=== PATIENT | male | born 1985 | race Caucasian/White ===

== ENCOUNTER 2016-09-15 22:12 | Emergency (ER) | payer OTHER ==
[~2016-09-15] VITALS: Ht 208.3 cm; Wt 136.1 kg
--- NOTE | 2016-09-15 22:37 | ED DYSPNEA/ASTHMA COMPLAINT ---
History of Present Illness General Chief Complaint: Dyspnea (COPD, CHF, Other) Stated Complaint: ASTHMA ATTACK Source: patient, family, old records Exam Limitations: clinical condition Vital Signs & Intake/Output Vital Signs & Intake/Output Vital Signs Date Time Temp Pulse Resp B/P Pulse O2 O2 Flow FiO2 Ox Delivery Rate 09/16 0022 98.7 93 20 134/74 92 Room Air 09/15 2219 98.4 116 24 165/90 89 Room Air ED Intake and Output 09/16 0000 09/15 1200 Intake Total Output Total Balance Patient 300 lb Weight Allergies Coded Allergies: Penicillins (Mild, UNKNOWN WAS TOLD HE HAD A KID 09/15/16) amoxicillin (Mild, UNKNOWN WAS TOLD HE HAD A KID 09/15/16) Reconcile Medications Albuterol Sulfate (Proair Hfa) 90 MCG HFA.AER.AD 2-4 INH INH Q6P PRN ASTHMA Ipratropium/Albuterol Sulfate (Combivent Respimat Inhal [place]) 20 MCG-100 MCG/ ACTUATION MIST.INHAL 2 INH INH Q6P PRN ASTHMA Prednisone (Deltasone) 20 MG TABLET 3 TAB PO DAILY ASTHMA Triage Note: RECEIVED 31 YO MALE WITH HX OF ASTHMA, C/O SUDDEN ONSET WHEEZING AND SOB, STARTED ABOUT ONE HOUR AGO IN SHOWER. Triage Nurses Notes Reviewed? yes Onset: Abrupt Duration: minute(s):, continues in ED, getting worse Severity: severe Activities at Onset: none Prior Episodes/Possible Cause: occasional episodes HPI: Patient presents for evaluation of severe shortness of breath that began abruptly while taking a shower prior to arrival. Patient began coughing severely. Since then he has had a constant shortness of breath gets worse with coughing and with exertion. Unfortunately they were unable to find his metered- dose inhaler at home so he has taken no medications to this point. He does Have a history of asthma. Past History Travel History Traveled to [place] past 21 day No Medical History Any Pertinent Medical History? see below for history Neurological: NONE EENT: NONE Cardiovascular: NONE Respiratory: asthma Gastrointestinal: NONE Hepatic: NONE Renal: NONE Musculoskeletal: NONE Psychiatric: NONE Endocrine: NONE Blood Disorders: NONE Cancer(s): NONE Surgical History Surgical History: non-contributory Psychosocial History What is your primary language Montenegrin Tobacco Use: Never used Family History Hx Contributory? No Review of Systems Review of Systems Constitutional: Reports: no symptoms. EENTM: Reports: no symptoms. Respiratory: Reports: see HPI. Cardiovascular: Reports: no symptoms. GI: Reports: no symptoms. Genitourinary: Reports: no symptoms. Musculoskeletal: Reports: no symptoms. Skin: Reports: no symptoms. Neurological/Psychological: Reports: no symptoms. Hematologic/Endocrine: Reports: no symptoms. Immunologic/Allergic: Reports: no symptoms. All Other Systems: Reviewed and Negative Physical Exam Physical Exam Respiratory: see below Comments: Gen.: Well-nourished, well-developed, severe respiratory distress. Head: Normocephalic, atraumatic. Eyes: Normal inspection bilaterally Ears: Normal inspection bilaterally Nose: Normal inspection Throat/mouth : Moist mucosa Neck: Supple, full range of motion, no goiter Heart: Regular rate and rhythm, no murmurs rubs or gallops Lungs: Diminished breath sounds bilaterally with no wheezes rales or rhonchi, pronounced bronchospastic cough with deep inspiration Chest: Nontender Back: Normal range of motion Abdomen: Soft, nontender, nondistended, normal bowel sounds Extremities: Normal range of motion grossly, equal radial pulses, no cyanosis clubbing or edema Neurologic: Cranial nerves grossly intact, speech is clear Skin: warm and dry Psychiatric: Slightly anxious but otherwise cooperative, no apparent delusions or hallucinations Core Measures ACS in differential dx? No Severe Sepsis Present: No Septic Shock Present: No Progress Differential Diagnosis: asthma, AMI, bronchitis, CHF, COPD, pulmonary embolism, pneumonia, pneumothorax, unstable angina Plan of Care: Orders Procedure Date/time Status TROPONIN LEVEL 09/15 2236 Complete D-DIMER 09/15 2236 Complete CBC WITHOUT DIFFERENTIAL 09/15 2236 Complete BASIC METABOLIC PANEL 09/15 2236 Complete Laboratory Tests 09/15/16 2314: Anion Gap 11, Estimated GFR > 60, BUN/Creatinine Ratio 13.1, Glucose 117 H, Calcium 9.7, Troponin I < 0.01, D-Dimer < 200, CBC w Diff NO MAN DIFF REQ, RBC 5.02, MCV 92.1, MCH 31.3 H, RDW 13.5, MPV 7.8, Gran % 65.3, Lymphocytes % 24.0, Monocytes % 8.0, Eosinophils % 2.5, Basophils % 0.2, Absolute Granulocytes 5.6, Absolute Lymphocytes 2.1, Absolute Monocytes 0.7 H, Absolute Eosinophils 0.2, Absolute Basophils 0, PUBS MCHC 33.9 Initial ED EKG: none Comments: 09/15/2016 10:37:25 PM medications ordered and I have discussed the possibility of a continuous nebulizer treatment with the respiratory therapist. 09/15/2016 11:18:02 PM Endy feels much better and looks really improved clinically. Auscultation of the lungs reveals improved although still diminished air entry, but the patient does not have the pronounced bronchospastic cough that he did with initial evaluation. Patient is also chest pain free at this moment. I have ordered an albuterol treatment. 09/16/2016 12:54:16 AM Endy is feeling much better and appears quite comfortable. In fact he is nodding off to sleep. I feel he is now stable for discharge to home. Departure Departure Disposition: HOME OR SELF CARE Condition: Stable Clinical Impression Primary Impression: Asthma exacerbation Additional Instructions: Rest, no exertion. Combivent inhaler 4 times daily for your asthma. Use albuterol in between if necessary. Prednisone as prescribed. Follow-up with your primary care physician on Sunday. Return if any concerns or sudden worsening. Thank you for choosing the [facility] for your care. It was a pleasure to serve you today. Sarabjit Graham M.D. [facility] Departure Forms: Customer Survey General Discharge Information Prescriptions: Current Visit Scripts Ipratropium/Albuterol Sulfate (Combivent Respimat Inhal [place]) 2 INH INH Q6P PRN ASTHMA #1 INHAL Albuterol Sulfate (Proair Hfa) 2-4 INH INH Q6P PRN ASTHMA #1 INHAL Prednisone (Deltasone) 3 TAB PO DAILY #15 TAB Critical Care Note Critical Care Note Critical Care Time: 30-74 min
--- NOTE | 2016-09-15 22:58 | RADIOLOGY REPORT ---
EXAMINATION: XR PORTABLE CHEST CLINICAL INFORMATION: Severe dyspnea and cough. History of asthma. COMPARISON: None. TECHNIQUE: Portable AP view of the chest was obtained. FINDINGS: The lungs are mildly hyperinflated, but otherwise clear without focal airspace consolidation. No pleural effusions or pneumothoraces are identified. Cardiomediastinal contours are within normal limits. Soft tissues are unremarkable. No acute osseous abnormality is identified. IMPRESSION: Pulmonary hyperinflation. This may be secondary to air trapping. Otherwise, no acute pulmonary process.
[2016-09-15 23:25] LABS: ABSOLUTE BASOPHIL COUNT 0 /CUMM (0.0-0.2); ABSOLUTE EOSINOPHIL COUNT 0.2 /CUMM (0.0-0.7); ABSOLUTE GRANULOCYTE CT 5.6 /CUMM (1.4-6.5); ABSOLUTE LYMPH COUNT 2.1 /CUMM (1.2-3.4); ABSOLUTE MONOCYTE COUNT 0.7 /CUMM (0.10-0.60); BASOPHIL % 0.2 % (0.0-2.0); EOSINOPHIL % 2.5 % (0-5); GRANULOCYTE % 65.3 % (42.2-75.2); HEMATOCRIT 46.2 % (42-52); MEAN CORPUSCULAR HGB 31.3 PG (27.0-31.0); MEAN CORPUSCULAR HGB CONC 33.9 G/DL (33.0-37.0); MEAN CORPUSCULAR VOLUME 92.1 FL (80.0-94.0); MEAN PLATELET VOLUME 7.8 FL (7.4-10.4); PLATELET COUNT 249 /CUMM (130-400); RBC DISTRIBUTION WIDTH 13.5 % (11.5-14.5); RED BLOOD CELL CT 5.02 /CUMM (4.70-6.10); WHITE BLOOD CELL COUNT 8.6 /CUMM (4.8-10.8)
[2016-09-16 00:22] VITALS: BP 134/74
[2016-09-16] MEDS ORDERED: DELTASONE20 MG PO (00:57)
[2016-09-16] MEDS ORDERED: PROAIR HFA8.5 GM INH (00:57)
[2016-09-16] MEDS ORDERED: COMBIVENT RESPIM4 GM INH (00:57)
== END 2016-09-16 01:20 ==
LOC: ERH 22:12
PROVIDERS: Emergency Medicine
DX: J45.901 Unspecified asthma with (acute) exacerbation (principal)
CPT/HCPCS: 1263; 96374; J2930